=== PATIENT | male | born 1985 | race Caucasian/White ===

== ENCOUNTER → 2018-06-30 | Outpatient (CLI) | payer OTHER ==
[2014-09-27 19:20] VITALS: BP 134/68
--- NOTE | 2018-06-30 14:17 | RAD ---
MR#: [id number] Date of Study: 06/30/2018 Ordering Physician: ISABELLA KIM, Referring Physician: SOCORRO PEARSON Tech: ALEXIA Alvarez APPROVED REPORT Test Type: Exercise Stress Nurse/Tech: ALEXIA Alvarez Test Indications: Chest pain Cardiac History: Hypertension - Family Hx of cardiac Medications: see EHR Medical History: see EHR Resting ECG: SR early R Transition NS Changes Resting Heart Rate: 80 bpm Resting Blood Pressure: 137/73mmHg Pretest Chest Pain: None Nurse/Tech Notes Consent: The procedure was explained to the patient in lay terms. Informed consent was witnessed. Lyle eout was entered into [employer]. History and Stress Test performed by ALEXIA Alvarez POST EXERCISE Reason for Termination: Reached target heart rate Target HR: 158 Max HR: 170 bpm Max Blood Pressure: 176/90mmHg Blood Pressure response to exercise: Normal blood pressure response during stress. Chest Pain: Yes. Angina index: 5 INTERPRETATION Stress EKG Conclusion: Baseline EKG showed sinus rhythm. ST depression and T-wave inversions inferior leads at peak stress suspicious for ischemia. Patient had few blocked PACs without any other signifi cant arrhythmias. Imaging Protocol IMAGE PROTOCOL: Rest Tc-99m/stress Tc-99m 1 day Rest: Stress: Viability: Radiopharm.Tc99m UgwbxjaviAs25x Sestamibi [id number] 33.6mCi Duration 17min. 12min. Img Date 06/30/2018 06/30/2018 Inj-Img [id number]. 60min. Post-Injection Exercise: 1 minute Rest Admin Site:IV - Left AntecubitalAdministrator: ALEXIA Alvarez Stress Admin Site: IV - Left AntecubitalAdministrator: ALEXIA Alvarez STRESS DATA End Diast. Vol.88.0mlAv. Heart Rate99.0bpm LVEDV index BSA2.0mlCardiac Output0.1L/min End Syst. Vol.22.0mlCO Index BSA6.6L/min LVESV index BSA0.0mlMyocardial Qmdm128.0g Eject. Hqexdmmt43.0% Stress Rates Pk. Fill Rate4.79EDV/secLVtime Pk. Fill 177.63msec Pk. Empty Rate6.01ESV/secLVtime Pk. Eject94.50msec 11/12 Pk. Fill1.54EDV/sec Stress Scores Regional WT1.00Summed WT3.00 Regional WM0.00Summed WM0.00 Study quality was good. Left Ventricular size was Normal at Rest and Stress. Lung uptake was . Left Ventricular ejection fraction is 75%. The rest and stress images show normal perfusion, normal contraction and thickening. LV Perf. Quant 17 Seg. SSS0.00 17 Seg. SRS7.00 17 Seg. SDS0.00 Stress Defect Extent (% LAD)0.00Rest Defect Extent (% LAD)20.60Rev. Defect Extent (% LAD)0.00 Stress Defect Extent (% LCX) 0.00Rest Defect Extent (% LCX)0.00Rev. Defect Extent (% LCX)0.00 Stress Defect Extent (% RCA)0.00Rest Defect Extent (% RCA)0.00Rev. Defect Extent (% RCA)0.00 Stress Defect Extent (% JENNIFER)0.00Rest Defect Extent (% JENNIFER)8.00Rev. Defect Extent (% JENNIFER)0.00 Conclusion 1. Treadmill exercise cardioisotope stress test showed suspicious changes on EKG but scintigraphic im ages did not show any evidence of ischemia or infarct. 2. Normal left ventricular systolic function with ejection fraction calculated at 75%. 3. Low risk for cardiac events. Signed by : Eric Levine, Electronically Approved : 06/30/2018 14:17:24
--- NOTE | 2018-06-30 14:23 | CARD ---
MR#: [id number] Date of Study: 06/30/2018 Ordering Physician: ISABELLA KIM, Referring Physician: Malcolm PEARSON: KLARISSA Parks APPROVED REPORT EXAM: Two-dimensional and M-mode echocardiogram with Doppler and color Doppler. Other Information Quality : GoodHR: 84bpm INDICATION Murmur 2D DIMENSIONS Left Atrium(2D)3.0 (1.6-4.0cm)IVSd1.1 (0.7-1.1cm) Aortic Root(2D)2.7 (2.0-3.7cm)LVDd4.4 (3.9-5.9cm) LVOT Diameter2.2 (1.8-2.4cm)PWd1.3 (0.7-1.1cm) LVDs3.0 (2.5-4.0cm)FS (%) 31.6 % SV53.6 mlLVEF(%)59.7 (>50%) Aortic Valve AoV Peak Brandon.140.2cm/sAoV VTI29.5cm AO Peak GR.7.9mmHgLVOT Peak Brandon.76.4cm/s LVOT VTI 15.47cmAO Mean GR.5mmHg KATHY (VMAX)2.51bo0VJR (VTI)1.96cm2 Mitral Valve MV E Wbwpdhck85.6cm/sMV DECEL [id number] MV A Phkbqbbn89.4cm/sE/A Ratio1.2 Pulmonary Valve PV Peak Wvingrwp615.9cm/sPV Peak Grad.5mmHg Pulmonary Vein S1 Reyqocnj88.3cm/sD2 Zlilrvjl67.4cm/s LEFT VENTRICLE The left ventricle is normal size. There is mild LVPW hypertrophy. The left ventricular systolic func tion is normal. The ejection fraction is estimated at 60%. There is normal LV segmental wall motion. The left ventricular diastolic function and filling is normal for age. RIGHT VENTRICLE The right ventricle is normal size. The right ventricular systolic function is normal. ATRIA The left atrium size is normal. The right atrium size is normal. The interatrial septum is intact wit h no evidence for an atrial septal defect or patent foramen ovale as noted on 2-D or Doppler imaging. AORTIC VALVE The aortic valve is normal in structure and function. Doppler and Color Flow revealed no significant aortic regurgitation. There is no significant aortic valvular stenosis. There is no aortic valvular v egetation. MITRAL VALVE The mitral valve is thickened but opens well. There is no evidence of mitral valve prolapse. There is no mitral valve stenosis. Doppler and Color Flow revealed no mitral valve regurgitation noted. TRICUSPID VALVE The tricuspid valve leaflets are thickened , but open well. Doppler and Color Flow revealed no tricus pid valve regurgitation noted. There is no tricuspid valve prolapse or vegetation. There is no tricus pid valve stenosis. PULMONIC VALVE The pulmonic valve is not well visualized. Doppler and Color Flow revealed no pulmonic valvular regur gitation. There is no pulmonic valvular stenosis. GREAT VESSELS The aortic root is normal in size. The IVC is normal in size and collapses >50% with inspiration. PERICARDIAL EFFUSION There is no pleural effusion. There is no evidence of significant pericardial effusion. Critical Notification Critical Value: No <Conclusion> The left ventricular systolic function is normal. The ejection fraction is estimated at 60%. There is normal LV segmental wall motion. No significant valvular abnormalities. There is no evidence of significant pericardial effusion. Signed by : Eric Levine, Electronically Approved : 06/30/2018 14:23:17
== END | disposition home or self-care (01) ==
LOC: NM 07:38
PROVIDERS: ATTEND Family Medicine
DX: R01.1 Cardiac murmur, unspecified (principal); R07.9 Chest pain, unspecified
CPT/HCPCS: 78452; 93017; 93306; 96374; 96376; A9500

== ENCOUNTER 2019-06-15 14:28 | Emergency (ER) | payer BC, OTHER ==
[~2019-06-15] VITALS: Ht 177.8 cm; Wt 79.4 kg
[2019-06-15 14:40] VITALS: BP 143/88
--- NOTE | 2019-06-15 14:55 | PHYS DOC ---
Past History Past Medical History: No Pertinent History Past Surgical History: No Surgical History Alcohol Use: None Drug Use: None Adult General Chief Complaint Chief Complaint: BACK PAIN OR INJURY HPI HPI Patient is a 33 year old male who presents with complaint of low back pain. The patient states that he injured his back 3 days ago. Patient states that he was lifting 75 pound bags of concrete and moving them from one pallet to another. He felt a sudden twinge in his low back while lifting one of the concrete bags. States that since, he has had worsening soreness and pain in his low back. He states he attempted to work again today but was unable to lift anything due to pain. Rates his pain on my evaluation currently as 8 out of 10. States that it is in the middle of his low back just above his hips. Denies radiation of pain to his lower extremities or to his flanks. Has not had any associated fever, nausea, or hematuria. Denies saddle anesthesia, or unilateral weakness, foot drop, or loss of bowel or bladder control. States that he took ibuprofen this morning with no significant relief in symptoms. Denies any previous history of back injury. Review of Systems Review of Systems Constitutional: Denies fever or chills [] Eyes: Denies change in visual acuity, redness, or eye pain [] HENT: Denies nasal congestion or sore throat [] Respiratory: Denies cough or shortness of breath [] Cardiovascular: Denies chest pain or edema[] GI: Denies abdominal pain, nausea, vomiting, bloody stools or diarrhea [] : Denies dysuria or hematuria [] Musculoskeletal: Back pain[] Integument: Denies rash or skin lesions [] Neurologic: Denies headache, focal weakness or sensory changes [] All other systems were reviewed and found to be within normal limits, except as documented in this note. Current Medications Current Medications Current Medications Medications (Trade) Dose Ordered Sig/Geovany Start Time Stop Time Status Last Admin Dose Admin Ketorolac Tromethamine (Toradol Im) 60 mg 1X ONCE 06/15/19 15:00 06/15/19 15:01 Orphenadrine Citrate (Norflex) 60 mg 1X ONCE 06/15/19 14:45 06/15/19 14:46 UNV Allergies Allergies Allergies Coded Allergies Type Severity Reaction Last Updated Verified No Known Drug Allergies 09/27/14 No Physical Exam Physical Exam Constitutional: Alert, afebrile, appears in xxez-yj-vsqzqobg discomfort. [] HENT: Normocephalic, atraumatic, bilateral external ears normal, oropharynx moist, no oral exudates, nose normal. [] Eyes: PERRLA, EOMI, conjunctiva normal, no discharge. [] Neck: Normal range of motion, no tenderness, supple, no stridor. [] Cardiovascular:Heart rate regular rhythm, no murmur [] Lungs & Thorax: Bilateral breath sounds clear to auscultation [] Abdomen: Bowel sounds normal, soft, no tenderness, no masses, no pulsatile masses. [] Skin: Warm, dry, no erythema, no rash. [] Back: Lower lumbar midline tenderness to palpation near her lumbosacral junction, mild bilateral paraspinous muscle tenderness to palpation in the lower lumbar spine, no CVA tenderness. [] Extremities: No tenderness, no cyanosis, no clubbing, ROM intact, no edema. [] Neurologic: Alert and oriented X 3, normal motor function, normal sensory function, no focal deficits noted. [] Current Patient Data Vital Signs Vital Signs Date Time Temp Pulse Resp B/P (MAP) Pulse Ox O2 Delivery O2 Flow Rate FiO2 06/15/19 14:40 98.2 90 16 100 Room Air 06/15/19 14:38 143/88 (106) EKG EKG Not performed[] Radiology/Procedures Radiology/[place] [address] IMAGING REPORT Signed PATIENT: NAJMA PAYTON ACCOUNT: [id number] : 1985 LOCATION: ER AGE: 33 SEX: M EXAM STATUS: REG ER ORD. PHYSICIAN: MERRY FERRARI MD REASON: lower lumbar midline pain for 3 days PROCEDURE: LUMBAR SPINE MIN 4V EXAM: Lumbar spine, 5 views. HISTORY: Pain. COMPARISON: None. FINDINGS: 5 views lumbar spine are obtained. There is no listhesis. The vertebral valle are normal in height and the disc spaces are preserved. IMPRESSION: No acute osseous finding. Electronically signed by: Purnima De La Fuente MD (06/15/2019 3:16 PM) [place] [id number] DICTATED AND SIGNED BY: PURNIMA DE LA FUENTE MD DATE: 06/15/19 1516 CC: MERRY FERRARI MD; Danielle NAVARRO MD ~ [] Course & Med Decision Making Course & Med Decision Making Pertinent Labs and Imaging studies reviewed. (See chart for details) X-rays negative for fracture or malalignment. Patient was treated with IM Toradol and Norflex. Symptoms appear consistent with low back sprain. Prescribed Flexeril and Naprosyn for continued outpatient treatment. Recommended follow-up with primary doctor in 1 week for reevaluation. Advised return to the emergency department for worsening symptoms. Patient was understanding and in agreement with treatment plan.[] Dragon Disclaimer Dragon Disclaimer This electronic medical record was generated, in whole or in part, using a voice recognition dictation system. Departure Departure: Impression: Primary Impression: Low back sprain Disposition: 01 HOME, SELF-CARE Condition: IMPROVED Referrals: Danielle NAVARRO MD (PCP) Patient Instructions: Back Pain, Adult Additional Instructions: Follow-up with your primary doctor in the next 5-7 days for reevaluation. Return to the emergency department for any worsening symptoms. Scripts Cyclobenzaprine Hcl (CYCLOBENZAPRINE HCL) 10 Mg Tablet 1 TAB PO TID PRN for MUSCLE SPASMS, #30 TAB Prov: MERRY FERRARI MD 06/15/19 Naproxen (NAPROSYN) 500 Mg Tablet 1 TAB PO BID, #20 TAB 0 Refills Prov: MERRY FERRARI MD 06/15/19 Problem Qualifiers Primary Impression: Low back sprain Encounter type: initial encounter Qualified Codes: S33.5XXA - Sprain of ligaments of lumbar spine, initial encounter MERRY FERRARI MD Jun 15, 2019 14:55
[2019-06-15] MEDS ORDERED: ORPHENADRINE CITRATE 60 MG/2 ML VIAL. IM ONE (15:00)
[2019-06-15] MEDS ORDERED: KETOROLAC 60 MG/2 ML VIAL. IM ONE (15:00)
--- NOTE | 2019-06-15 15:19 | RAD ---
EXAM: Lumbar spine, 5 views. HISTORY: Pain. COMPARISON: None. FINDINGS: 5 views lumbar spine are obtained. There is no listhesis. The vertebral valle are normal in height and the disc spaces are preserved. IMPRESSION: No acute osseous finding. Electronically signed by: Purnima Fernando MD (06/15/2019 3:16 PM) [facility]
[2019-06-15] MEDS ORDERED: NAPR-683 PO (15:26)
[2019-06-15] MEDS ORDERED: CYCL-331 PO (15:26)
== END 2019-06-15 15:40 | disposition home or self-care (01) ==
LOC: ER 14:28
DX: S33.5XXA Sprain of ligaments of lumbar spine, initial encounter (principal); X50.9XXA Other and unspecified overexertion or strenuous movements or postures, initial encounter; Y93.89 Activity, other specified; Y92.89 Other specified places as the place of occurrence of the external cause; Y99.8 Other external cause status
CPT/HCPCS: 72110; 96372; 99284; J1885; J2360